=== PATIENT | male | born 1935 | race Caucasian/White ===

== ENCOUNTER 2017-06-13 22:52 | Emergency (ER) | payer MEDICARE, BC, OTHER ==
[2017-06-13] MEDS: GASTROGRAFIN SOLUTION 30ML PO (23:30)
[2017-06-13 23:37] LABS: BASO % 0.3 % (0.0-1.0); EOS # 0.2 10^3/uL (0.0-0.50); EOS % 1.2 % (0.0-3.0); HEMATOCRIT 42.3 % (42.0-52.0); HEMOGLOBIN 14.7 g/dl (13.5-17.5); IMMATURE GRANULOCYTE % 0.4 % (0-3.0); LYMPH # 1.1 10^3/uL (1.5-4.5); LYMPH % 8.2 % (24.0-44.0); MEAN CORPUSCULAR HEMOGLOBIN 31.7 pg (27.0-33.0); MEAN CORPUSCULAR HGB CONC 34.8 g/dl (32.0-36.5); MEAN CORPUSCULAR VOLUME 91.4 fl (80.0-96.0); MONO # 0.8 10^3/uL (0.0-0.8); MONO % 5.9 % (0.0-5.0); NEUTROPHILS # 10.7 10^3/uL (1.8-7.7); PLATELET COUNT, AUTOMATED 224 10^3/uL (150-450); RED BLOOD COUNT 4.63 10^6/uL (4.30-6.10); WHITE BLOOD COUNT 12.8 10^3/uL (4.0-10.0)
[2017-06-13 23:47] LABS: APPEARANCE, URINE CLEAR (CLEAR); BACTERIA, URINE AUTO NEGATIVE (NEGATIVE); BILIRUBIN, URINE AUTO NEGATIVE (NEGATIVE); BLOOD, URINE BLOOD 1+ (NEGATIVE); COLOR, URINE YELLOW (YELLOW); GLUCOSE, URINE (UA) AUTO NEGATIVE (NEGATIVE); KETONE, URINE AUTO TRACE mg/dL (NEGATIVE); LEUKOCYTE ESTERASE, URINE AUTO NEGATIVE (NEGATIVE); MUCUS, URINE SMALL (NEGATIVE); NITRITE, URINE AUTO NEGATIVE (NEGATIVE); PROTEIN, URINE AUTO NEGATIVE (NEGATIVE); RBC, URINE AUTO 4 /HPF (0-3); SPECIFIC GRAVITY URINE AUTO 1.017 (1.002-1.035); SQUAMOUS EPITHELIAL CELL UR AU 0 /HPF (0-6); UROBILINOGEN, URINE AUTO 0.2 mg/dL (0.0-2.0); WBC, URINE AUTO 1 /HPF (0-3)
[2017-06-14] LABS: ALBUMIN 3.7 GM/DL (3.2-5.2); ALBUMIN/GLOBULIN RATIO 1.19 (1.00-1.93); ALKALINE PHOSPHATASE 84 U/L (45-117); ALT/SGPT 25 U/L (12-78); ANION GAP 9 MEQ/L (8-16); AST/SGOT 29 U/L (7-37); BILIRUBIN,DIRECT 0.2 MG/DL (0.0-0.2); BILIRUBIN,TOTAL 0.8 MG/DL (0.2-1.0); BLOOD UREA NITROGEN 12 MG/DL (7-18); CALCIUM LEVEL 8.9 MG/DL (8.8-10.2); CARBON DIOXIDE LEVEL 24 MEQ/L (21-32); CHLORIDE LEVEL 109 MEQ/L (98-107); CREATININE FOR GFR 1.18 MG/DL (0.70-1.30); GLOMERULAR FILTRATION RATE > 60.0 (>42); GLUCOSE, FASTING 101 MG/DL (70-100); LIPASE 160 U/L (73-393); POTASSIUM SERUM 3.9 MEQ/L (3.5-5.1); SODIUM LEVEL 142 MEQ/L (136-145); TOTAL PROTEIN 6.8 GM/DL (6.4-8.2)
[2017-06-14] MEDS: GASTROGRAFIN SOLUTION 30ML PO
[2017-06-14] MEDS: ONDANSETRON 4MG/2ML VIAL (J2405) IV (01:26)
[2017-06-14] MEDS: dexameTHASONE 20 MG/5 ML VIAL (J1100) IV (01:26)
[2017-06-14] MEDS ORDERED: MORPHINE 4 MG/ML 1ML VIAL/SYRINGE (J2270) IV (01:30)
== END 2017-06-14 02:23 | disposition home or self-care (01) ==
LOC: M ED 06-14 02:23
DX: K50.00 Crohn's disease of small intestine without complications (principal); I10 Essential (primary) hypertension; Z79.899 Other long term (current) drug therapy
CPT/HCPCS: Q9963

== ENCOUNTER → 2018-12-03 | Outpatient (REF) | payer MEDICARE, OTHER ==
[~2018-12-03] MED LIST: BIMA01SOL; CALC600T60 PO; LOSA50TA88 PO; LUTE10TA PO; PRED20TA PO; TIMO0.2525 OD; VITA200016 PO
[2018-12-03 12:10] LABS: CHOLESTEROL RISK RATIO 2.949 (<5); TOTAL 25(OH) VITAMIN D 47.2 NG/ML (30.0-100.0)
== END ==
LOC: M SFHCCLAY 07:31
PROVIDERS: ATTEND Family Medicine
DX: E78.00 Pure hypercholesterolemia, unspecified (principal); E55.9 Vitamin D deficiency, unspecified; Z79.899 Other long term (current) drug therapy

== ENCOUNTER → 2018-12-07 | Outpatient (REF) | payer MEDICARE, OTHER ==
[2018-12-07 16:23] LABS: CALCIUM LEVEL 8.3 MG/DL (8.8-10.2); CREATININE FOR GFR 1.29 MG/DL (0.70-1.30); GLOMERULAR FILTRATION RATE 56.9 (>35); POTASSIUM SERUM 4.2 MEQ/L (3.5-5.1)
== END ==
LOC: M SFHCCLAY 09:49
PROVIDERS: ATTEND Family Medicine
DX: M35.3 Polymyalgia rheumatica (principal)
CPT/HCPCS: 80048; 85652; G0463

== ENCOUNTER 2019-11-18 11:52 | Emergency (ER) | payer MEDICARE, BC, OTHER ==
[~2019-11-18] VITALS: Ht 172.7 cm; Wt 86.4 kg
[2019-11-18] MEDS ORDERED: ACETAMINOPHEN 500 MG TAB PO ONE (12:15)
[2019-11-18] MEDS ORDERED: PRED1TABL (12:15)
--- NOTE | 2019-11-18 12:54 | REPVR ---
PROCEDURE INFORMATION: Exam: XR Chest, 2 Views Exam date and time: 11/18/2019 12:25 PM Age: 84 years old Clinical indication: Other: Neck and shoulder pain; Additional info: Back pain TECHNIQUE: Imaging protocol: XR of the chest Views: 2 views. COMPARISON: No relevant prior studies available. FINDINGS: Lungs: Unremarkable. No consolidation. Pleural space: Unremarkable. No pleural effusion. No pneumothorax. Heart/Mediastinum: Mild prominence of the cardiac silhouette. Vasculature: Calcification of the thoracic aorta. Bones/joints: Degenerative change of the spine. IMPRESSION: Mild prominence of the cardiac silhouette. Electronically signed by: Lorena Chavez On 11/18/2019 12:54:14 PM
[2019-11-18] MEDS ORDERED: ISOVUE-370 76% 100ML VIAL As Ordered ONE (14:22)
--- NOTE | 2019-11-18 14:52 | REPVR ---
PROCEDURE INFORMATION: Exam: CT Angiography Chest With Contrast Exam date and time: 11/18/2019 2:32 PM Age: 84 years old Clinical indication: Other: Back pain TECHNIQUE: Imaging protocol: Computed tomographic angiography of the chest with intravenous contrast. 3D rendering (Not supervised by radiologist): MIP and/or 3D reconstructed images were created by the technologist. Radiation optimization: All CT scans at this facility use at least one of these dose optimization techniques: automated exposure control; mA and/or kV adjustment per patient size (includes targeted exams where dose is matched to clinical indication); or iterative reconstruction. Contrast material: ISOVUE 370; Contrast volume: 100 ml; Contrast route: INTRAVENOUS (IV); COMPARISON: CR Chest, 2 view PA, Lat 11/18/2019 12:02 PM FINDINGS: Pulmonary arteries: No evidence of pulmonary embolism. Aorta: Mild atherosclerotic change of the thoracic aorta. No thoracic aortic aneurysm or dissection. Lungs: Incidental azygos lobe. Tiny calcified right upper lobe granuloma. Noncalcified 2 mm right middle lobe pulmonary nodule (series 401, image 105). Pleural space: Unremarkable. No pneumothorax. No pleural effusion. Heart: Aortic valve calcification. Prominent coronary artery calcifications. Lymph nodes: Calcified mediastinal and hilar lymph nodes are suggestive of prior granulomatous disease. Gallbladder and bile ducts: There has been a cholecystectomy. Bones/joints: Right glenohumeral joint DJD. Degenerative change of the spine. Soft tissues: Unremarkable. IMPRESSION: 1. No evidence of pulmonary embolism. 2. No acute thoracic aortic pathology. 3. 2 mm right middle lobe pulmonary nodule. For patients at low risk (minimal or absent history of smoking and of other known risk factors), no routine follow-up is indicated. For patients at high risk (history of smoking or of other known risk factors), consider optional CT Chest at 12 months. (Reference: Manas) 4. Prominent coronary artery calcifications. REFERENCES: Manas H, et al. Guidelines for Management of Incidental Pulmonary Nodules Detected on CT Images: From the Fleischner Society 2017. Radiology. 2017;284(1):228-243. Electronically signed by: Lorena Chavez On 11/18/2019 14:51:30 PM
[2019-11-18] MEDS ORDERED: LIDO5DIS41 TOP (14:57)
[2019-11-18] MEDS ORDERED: LIDOCAINE 5% (LIDODERM) PATCH TD ONE (15:00)
[2019-11-18 15:23] VITALS: BP 163/84
[2019-11-18] MEDS ORDERED: **NOTE PATIENT COMMENT** MISC XX SCH (21:00)
--- NOTE | 2019-11-19 07:21 | ECGEPIP ---
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
--- NOTE | 2019-11-19 10:58 | ED PDOC ---
Post-Departure Follow-Up dr mcgraw faxed formal report of cta neck for fu Esdras Geronimo MD Nov 19, 2019 10:58
== END 2019-11-18 15:27 | disposition home or self-care (01) ==
LOC: EDBD 11:52 → M ED 11:52
DX: M54.9 Dorsalgia, unspecified (principal); R91.1 Solitary pulmonary nodule; I25.84 Coronary atherosclerosis due to calcified coronary lesion; R00.1 Bradycardia, unspecified; I45.10 Unspecified right bundle-branch block; I10 Essential (primary) hypertension; M48.00 Spinal stenosis, site unspecified; H40.9 Unspecified glaucoma; M35.3 Polymyalgia rheumatica; Z79.899 Other long term (current) drug therapy
CPT/HCPCS: 71046; 71275; 80047; 84484; 93005; 99284; Q9967

== ENCOUNTER 2020-04-27 19:56 | Emergency (ER) | payer MEDICARE, BC, OTHER ==
[~2020-04-27] VITALS: Ht 172.7 cm; Wt 88.0 kg
[~2020-04-27 19:56] MED LIST changes: +LIDO5DIS41 TOP; +PRED1TABL
[2020-04-27] MEDS ORDERED: NITROGLYCERIN 0.4 MG SUBL TABLET SL PRN (20:20)
[2020-04-27] MEDS ORDERED: ASPIRIN 81 MG CHEW TABLET PO ONE (20:20)
[2020-04-27 20:26] LABS: BASO # 0.1 10^3/uL (0.0-0.2); BASO % 0.9 % (0.0-1.0); EOS # 0.2 10^3/uL (0.0-0.5); EOS % 2.1 % (0.0-3.0); HEMATOCRIT 45.3 % (42.0-52.0); HEMOGLOBIN 15.1 g/dl (13.5-17.5); LYMPH # 1.6 10^3/uL (1.5-5.0); LYMPH % 16.8 % (24.0-44.0); MEAN CORPUSCULAR HEMOGLOBIN 31.4 pg (27.0-33.0); MEAN CORPUSCULAR HGB CONC 33.3 g/dl (32.0-36.5); MEAN CORPUSCULAR VOLUME 94.2 fl (80.0-96.0); MONO % 10.6 % (2.0-8.0); NEUTROPHILS # 6.7 10^3/uL (1.5-8.5); NEUTROPHILS % 69.3 % (36.0-66.0); PLATELET COUNT, AUTOMATED 273 10^3/uL (150-450); RED BLOOD COUNT 4.81 10^6/uL (4.30-6.10); WHITE BLOOD COUNT 9.7 10^3/uL (4.0-10.0)
[2020-04-27 20:31] VITALS: BP 153/79
[2020-04-27 20:44] LABS: INR 1.01; PARTIAL THROMBOPLASTIN TIME 27.4 SECONDS (24.2-38.5); PROTHROMBIN TIME 13.6 SECONDS (12.5-14.3)
[2020-04-27 21:02] LABS: ALBUMIN 3.8 GM/DL (3.2-5.2); ALT/SGPT 25 U/L (12-78); BILIRUBIN,DIRECT 0.2 MG/DL (0.0-0.2); BILIRUBIN,TOTAL 0.7 MG/DL (0.2-1.0); BLOOD UREA NITROGEN 17 MG/DL (7-18); CALCIUM LEVEL 8.7 MG/DL (8.8-10.2); CARBON DIOXIDE LEVEL 27 MEQ/L (21-32); CHLORIDE LEVEL 108 MEQ/L (98-107); CK-MB VALUE MASS 4.1 NG/ML (<3.6); CPK CREATINE PHOSPHOKINASE 134 U/L (39-308); CREATININE FOR GFR 1.11 MG/DL (0.70-1.30); GLOMERULAR FILTRATION RATE > 60.0 (>35); GLUCOSE, FASTING 81 MG/DL (70-100); LIPASE 185 U/L (73-393); MB/CK RELATIVE INDEX 3.06 (< OR =4); POTASSIUM SERUM 3.8 MEQ/L (3.5-5.1); SODIUM LEVEL 141 MEQ/L (136-145); TOTAL PROTEIN 6.9 GM/DL (6.4-8.2); TROPONIN I < 0.02 NG/ML (< 0.10)
--- NOTE | 2020-04-27 21:18 | REPVR ---
PROCEDURE INFORMATION: Exam: XR Chest Exam date and time: 04/27/2020 9:05 PM Age: 84 years old Clinical indication: Other: Chest pain TECHNIQUE: Imaging protocol: XR of the chest Views: 1 view. COMPARISON: CR Chest, 2 view PA, Lat 11/18/2019 12:02 PM FINDINGS: Lungs: Unremarkable. No consolidation. Pleural spaces: Unremarkable. No pleural effusion. No pneumothorax. Heart/Mediastinum: Unremarkable. No cardiomegaly. Bones/joints: The spine demonstrates moderate degenerative changes. IMPRESSION: No acute findings. Electronically signed by: Antoine Bautista On 04/27/2020 21:17:45 PM
[2020-04-27] MEDS ORDERED: ISOVUE-370 76% 100ML VIAL As Ordered ONE (21:29)
--- NOTE | 2020-04-27 22:38 | REPVR ---
PROCEDURE INFORMATION: Exam: CT Angiography Chest With Contrast Exam date and time: 04/27/2020 9:38 PM Age: 84 years old Clinical indication: Chest pain TECHNIQUE: Imaging protocol: Computed tomographic angiography of the chest with contrast. 3D rendering (Not supervised by radiologist): MIP and/or 3D reconstructed images were created by the technologist. Radiation optimization: All CT scans at this facility use at least one of these dose optimization techniques: automated exposure control; mA and/or kV adjustment per patient size (includes targeted exams where dose is matched to clinical indication); or iterative reconstruction. Contrast material: ISOVUE 370; Contrast volume: 75 ml; Contrast route: INTRAVENOUS (IV); COMPARISON: CT ANGIO CHEST 11/18/2019 2:22 PM FINDINGS: Pulmonary arteries: The main pulmonary artery measures 29 mm. No pulmonary embolism is identified. Aorta: The ascending thoracic aorta measures 36 mm. Lungs: An azygos lobe is noted. Minimal dependent atelectasis. Pleural spaces: Unremarkable. No pneumothorax. No pleural effusion. Heart: Unremarkable. No cardiomegaly. No pericardial effusion. Lymph nodes: Calcified bilateral hilar nodes. Gallbladder and bile ducts: Status post cholecystectomy. Bones/joints: Segmental ankylosis in the mid and lower thoracic spine. Soft tissues: Unremarkable. IMPRESSION: 1. Minimal evidence of old granulomatous disease. 2. Otherwise negative CTA chest. No acute interval pulmonary embolism is identified. Electronically signed by: Rylan Browne On 04/27/2020 22:38:21 PM
[2020-04-28 02:55] LABS: CK-MB VALUE MASS 3.1 NG/ML (<3.6); CPK CREATINE PHOSPHOKINASE 98 U/L (39-308); MB/CK RELATIVE INDEX 3.16 (< OR =4); TROPONIN I < 0.02 NG/ML (< 0.10)
[2020-04-28 03:15] VITALS: BP 127/67
[2020-04-28] MEDS ORDERED: ASPI81TA26 PO (03:20)
--- NOTE | 2020-04-28 07:52 | ECGEPIP ---
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
--- NOTE | 2020-04-30 07:56 | ECGEPIP ---
[facility] - ED Test Date: 2020-04-27 Pat Name: GAUTAM HUGHES Department: Room: - Gender: Male [employer]: ED : 1935 Requested By: JERRI Donnelly Order Number: [id number] Reading MD: Suyapa Wilder Measurements Intervals [place] Rate: 55 P: 39 MD: 158 QRS: 58 QRSD: 130 T: 12 QT: 452 QTc: 432 Interpretive Statements Sinus bradycardia Right bundle branch block Possible Inferior infarct , age undetermined similar 11/18/19 Electronically Signed on 04-30-2020 7:55:55 EDT by Suyapa Wilder
== END 2020-04-28 03:35 | disposition home or self-care (01) ==
LOC: M ED 19:56
DX: R07.9 Chest pain, unspecified (principal); J84.10 Pulmonary fibrosis, unspecified; I10 Essential (primary) hypertension; H40.9 Unspecified glaucoma; M35.3 Polymyalgia rheumatica; M48.00 Spinal stenosis, site unspecified; N52.9 Male erectile dysfunction, unspecified; R91.1 Solitary pulmonary nodule; Z87.891 Personal history of nicotine dependence; Z79.899 Other long term (current) drug therapy; Z79.52 Long term (current) use of systemic steroids
CPT/HCPCS: 71045; 71275; 80048; 80076; 82550; 82553; 83690; 84484; 85025; 85610; 85730; 93005; 93041; 94760; 99285; Q9967

== ENCOUNTER → 2020-11-06 | Outpatient (CLI) | payer MEDICARE, BC, OTHER ==
[~2020-11-06] MED LIST changes: +ASPI81TA26 PO
--- NOTE | 2020-11-06 14:17 | REP ---
INDICATION: PULMONARY NODULE COMPARISON: Multiple the latest 04/27/2020 CT angio chest TECHNIQUE: Standard helical technique without intravenous contrast administration FINDINGS: The mediastinum and pulmonary juana are within normal limits. There is no evidence of a mass or adenopathy. Benign calcifications are noted status quo. There are coronary artery calcifications status quo. There are no pleural or pericardial effusions. There is no change in the imaged upper abdomen or imaged osseous structures. Evaluation of the lung lambert shows multiple stable nodules. No new abnormal nodules, masses, or opacities have developed. There is mild biapical pleuroparenchymal scarring status quo. IMPRESSION: No evidence of acute disease or significant change compared to the prior exam. Lung rads category 2 exam. <Electronically signed by Jeffrey Barr > 11/06/20 [id number]
== END ==
LOC: M RAD 13:24
PROVIDERS: ATTEND Family Medicine
DX: R91.1 Solitary pulmonary nodule (principal)

== ENCOUNTER → 2021-05-10 | Outpatient (REF) | payer MEDICARE, OTHER ==
[~2021-05-10] MED LIST changes: +LOSA50TA28 PO; -LOSA50TA88 PO
[2021-05-10 16:28] LABS: AMORPHOUS SEDIMENT SMALL (NEGATIVE); APPEARANCE, URINE HAZY (CLEAR); BACTERIA, URINE AUTO NEGATIVE (NEGATIVE); BILIRUBIN, URINE AUTO NEGATIVE (NEGATIVE); BLOOD, URINE BLOOD 1+ (NEGATIVE); COLOR, URINE YELLOW (YELLOW); GLUCOSE, URINE (UA) AUTO NEGATIVE (NEGATIVE); KETONE, URINE AUTO NEGATIVE (NEGATIVE); LEUKOCYTE ESTERASE, URINE AUTO TRACE (NEGATIVE); MUCUS, URINE SMALL (NEGATIVE); NITRITE, URINE AUTO NEGATIVE (NEGATIVE); PROTEIN, URINE AUTO NEGATIVE (NEGATIVE); RBC, URINE AUTO 1 /HPF (0-3); SQUAMOUS EPITHELIAL CELL UR AU 0 /HPF (0-6); UROBILINOGEN, URINE AUTO 0.2 mg/dL (0.0-2.0); WBC, URINE AUTO 3 /HPF (0-3)
== END ==
LOC: M SFHCCLAY 10:27
PROVIDERS: ATTEND Family Medicine
DX: R70.0 Elevated erythrocyte sedimentation rate (principal); R10.2 Pelvic and perineal pain

== ENCOUNTER → 2021-08-03 | Outpatient (CLI) | payer MEDICARE, BC, OTHER | LOC: M WHC 10:28 | PROVIDERS: ATTEND Family Medicine | DX: M85.80 Other specified disorders of bone density and structure, unspecified site (principal); M35.3 Polymyalgia rheumatica; Z79.52 Long term (current) use of systemic steroids ==

== ENCOUNTER → 2021-10-25 | Outpatient (REF) | payer MEDICARE, OTHER | LOC: M SFHCCLAY 09:51 | PROVIDERS: ATTEND Nurse Practitioner Family | DX: I11.0 Hypertensive heart disease with heart failure (principal); M35.3 Polymyalgia rheumatica ==

== ENCOUNTER → 2021-12-13 | Outpatient (CLI) | payer MEDICARE, OTHER ==
[~2021-12-13] MED LIST changes: +ISOVUE-370 76% 100ML VIAL As Ordered ONE
== END ==
LOC: M RAD 10:39
PROVIDERS: ATTEND Nurse Practitioner Family
DX: R91.1 Solitary pulmonary nodule (principal)
CPT/HCPCS: 71260; Q9967

== ENCOUNTER → 2023-11-27 | Outpatient (REF) | payer MEDICARE, BC ==
[~2023-11-27] MED LIST changes: -ISOVUE-370 76% 100ML VIAL As Ordered ONE
== END ==
LOC: M SFHCCLAY 08:52
PROVIDERS: ATTEND Nurse Practitioner Family
DX: I10 Essential (primary) hypertension (principal); Z13.9 Encounter for screening, unspecified; M35.3 Polymyalgia rheumatica; M25.551 Pain in right hip

== ENCOUNTER → 2023-12-03 | Outpatient (REF) | payer MEDICARE, BC | LOC: M SFHCCLAY 10:25 | PROVIDERS: ATTEND Nurse Practitioner Family | DX: I10 Essential (primary) hypertension (principal); Z13.9 Encounter for screening, unspecified; M35.3 Polymyalgia rheumatica; M25.551 Pain in right hip ==

== ENCOUNTER 2024-04-18 12:29 | Emergency (ER) | payer MEDICARE, BC ==
[~2024-04-18] VITALS: Ht 172.7 cm; Wt 83.7 kg
[2024-04-18 13:14] LABS: BASO % 0.4 % (0.0-1.0); EOS # 0.3 10^3/uL (0.0-0.5); EOS % 3.2 % (0.0-3.0); HEMATOCRIT 44.1 % (42.0-52.0); HEMOGLOBIN 14.8 g/dl (13.5-17.5); LYMPH # 0.7 10^3/uL (1.5-5.0); LYMPH % 7.1 % (24.0-44.0); MEAN CORPUSCULAR HEMOGLOBIN 31.6 pg (27.0-33.0); MEAN CORPUSCULAR HGB CONC 33.6 g/dl (32.0-36.5); MONO # 0.9 10^3/uL (0.0-0.8); MONO % 8.9 % (2.0-8.0); NEUTROPHILS # 7.6 10^3/uL (1.5-8.5); PLATELET COUNT, AUTOMATED 287 10^3/uL (150-450); RED BLOOD COUNT 4.69 10^6/uL (4.30-6.10); WHITE BLOOD COUNT 9.6 10^3/uL (4.0-10.0)
[2024-04-18 13:41] LABS: LIPASE 44 U/L (12-53)
[2024-04-18 13:43] LABS: ALBUMIN 3.5 G/DL (3.2-5.2); ALKALINE PHOSPHATASE 96 U/L (40-129); ALT/SGPT 21 U/L (7.0-40); AST/SGOT 25 U/L (<34); BILIRUBIN,DIRECT 0.2 MG/DL (<0.4); BILIRUBIN,TOTAL 0.8 MG/DL (0.3-1.2); BLOOD UREA NITROGEN 17 MG/DL (9-23); CALCIUM LEVEL 8.6 MG/DL (8.3-10.6); CARBON DIOXIDE LEVEL 26 MMOL/L (20-31); CHLORIDE LEVEL 105 MMOL/L (98-107); CK-MB VALUE MASS 1.3 NG/ML (<3.6); CREATININE FOR GFR 1.04 MG/DL (0.70-1.30); GLOMERULAR FILTRATION RATE > 60.0 (>35); GLUCOSE, FASTING 114 MG/DL (74-106); POTASSIUM SERUM 4.2 MMOL/L (3.5-5.1); SODIUM LEVEL 140 MMOL/L (136-145); TOTAL PROTEIN 6.4 G/DL (5.7-8.2)
[2024-04-18 13:53] LABS: CPK CREATINE PHOSPHOKINASE 89 U/L (46-171); MB/CK RELATIVE INDEX 1.46 (< OR =4)
[2024-04-18] MEDS: MAALOX 30 ML SUSP *UDC PO ONE (14:02)
[2024-04-18] MEDS: SUCRALFATE SUSP 1GM/10ML UD PO ONE (14:02)
[2024-04-18] MEDS: ASPIRIN 81MG CHEW TABLET PO ONE (14:03)
[2024-04-18] MEDS ORDERED: ISOVUE-370 76% 100ML VIAL As Ordered ONE (14:13)
[2024-04-18 14:40] LABS: CK-MB VALUE MASS 1.2 NG/ML (<3.6)
[2024-04-18 14:42] LABS: MB/CK RELATIVE INDEX 1.36 (< OR =4)
[2024-04-18] MEDS ORDERED: PEPC1TAB5 PO (16:30)
[2024-04-18] MEDS ORDERED: SUCR1SS PO (16:30)
[2024-04-18 16:55] VITALS: BP 124/74; TEMP 98.2; O2SAT 96
== END 2024-04-18 16:59 | disposition home or self-care (01) ==
LOC: M ED 12:29
DX: R07.9 Chest pain, unspecified (principal); R00.1 Bradycardia, unspecified; I45.10 Unspecified right bundle-branch block; I10 Essential (primary) hypertension; F10.10 Alcohol abuse, uncomplicated; Z79.1 Long term (current) use of non-steroidal anti-inflammatories (NSAID); Z79.52 Long term (current) use of systemic steroids; Z79.899 Other long term (current) drug therapy
CPT/HCPCS: 36415; 71045; 71275; 74175; 80048; 80076; 82550; 82553; 83690; 84484; 85025; 85730; 93005; 93041; 94760; 99285; Q9967